=== PATIENT | female | born 1990 | race Caucasian/White ===

== ENCOUNTER 2016-08-09 08:16 | Emergency (ER) | payer OTHER | END 2016-08-09 10:13 | disposition home or self-care (01) | LOC: ER 08:16 | DX: J06.9 Acute upper respiratory infection, unspecified (principal); R05 Cough; F17.210 Nicotine dependence, cigarettes, uncomplicated; Z87.19 Personal history of other diseases of the digestive system; Z98.51 Tubal ligation status | CPT/HCPCS: 87070; 87400; 87880; 99283 ==